=== PATIENT | male | born 1945 | race Caucasian/White ===

== ENCOUNTER 2019-02-28 07:17 | Day surgery (SDC) | payer BC, MEDICARE ==
[2019-02-28 08:46] LABS: ADD MAN DIFF? NO
[2019-02-28 08:48] LABS: BASOPHIL # 0.1 10^3/ul (0.0-0.1); BASOPHILS % 0.8 % (0.0-2.0); EOSINOPHILS # 0.2 10^3/ul (0.0-0.5); EOSINOPHILS % 3.4 % (0.0-7.0); HEMATOCRIT 50.1 % (42.0-52.0); HEMOGLOBIN 16.5 g/dl (14.0-18.0); LYMPHOCYTES # 1.3 10^3/ul (0.8-2.9); LYMPHOCYTES % 22.2 % (15.0-51.0); MEAN CORPUSCULAR HEMOGLOBIN 28.9 pg (29.0-33.0); MEAN CORPUSCULAR HGB CONC 32.9 g/dl (32.0-37.0); MEAN CORPUSCULAR VOLUME 87.7 fl (82.0-101.0); MEAN PLATELET VOLUME 9.8 fl (7.4-10.4); MONOCYTE # 0.6 10^3/ul (0.3-0.9); MONOCYTES % 9.3 % (0.0-11.0); NEUTROPHIL # 3.8 10^3/ul (1.6-7.5); PLATELET COUNT 255 10^3/UL (140-415); RED BLOOD COUNT 5.71 10^6/ul (4.70-6.10); RED CELL DISTRIBUTION WIDTH 12.7 % (11.5-14.5)
[2019-02-28 08:48] LABS: WHITE BLOOD COUNT 5.9 10^3/ul (4.8-10.8)
[2019-02-28] MEDS ORDERED: LACTATED RINGER'S 1,000 ML IV (09:00)
[2019-02-28 09:07] LABS: ANION GAP 9 (5-13); CALCIUM 9.2 mg/dl (8.4-10.2); CARBON DIOXIDE 28 mmol/L (21-31); CHLORIDE 104 mmol/L (97-110); CREATININE 0.99 mg/dl (0.61-1.24); GLUCOSE 102 mg/dl (70-220); POTASSIUM 4.2 mmol/L (3.5-5.1); SODIUM 141 mmol/L (135-144)
[2019-02-28 09:16] LABS: BLOOD UREA NITROGEN 24 mg/dl (7-20)
[2019-02-28] MEDS ORDERED: FENTAnyl 50 MCG/ML VIAL ×2 (09:20→09:49)
[2019-02-28] MEDS ORDERED: CEFAZOLIN 1 GM INJ (09:20)
[2019-02-28] MEDS ORDERED: MIDAZOLAM 1 MG/ML 2 ML INJ (09:20)
[2019-02-28] MEDS ORDERED: PROPOFOL 40 ML (09:20)
[2019-02-28] MEDS ORDERED: ONDANSETRON 4 MG INJ (09:34)
[2019-02-28] MEDS ORDERED: FAMOTIDINE 20 MG INJ (09:34)
[2019-02-28] MEDS ORDERED: PROPOFOL 20 ML (09:58)
[2019-02-28] MEDS: LIDOCAINE 1% (MPF) 30 ML INJ (10:04)
[2019-02-28] MEDS: BUPIVACAINE 0.25% (MPF) 30 ML INJ (10:04)
[2019-02-28] MEDS ORDERED: LABETALOL HCL 20MG INJ IV (10:30)
[2019-02-28] MEDS ORDERED: FENTAnyl 50 MCG/ML VIAL IV ×3 (10:30)
[2019-02-28] MEDS ORDERED: OXYCODONE/ACETAMINOPHEN (5/325) TAB PO ×2 (10:30)
[2019-02-28] MEDS ORDERED: MEPERIDINE 25 MG INJ IV (10:30)
[2019-02-28] MEDS ORDERED: ONDANSETRON 4 MG INJ IV (10:30)
== END 2019-02-28 11:45 | disposition home or self-care (01) ==
LOC: SDS 07:17
DX: M54.12 Radiculopathy, cervical region (principal)
CPT/HCPCS: 63662; 71045; 72020; 80048; 85025; 88300; 93005